=== PATIENT | female | born 1955 | race Caucasian/White ===

== ENCOUNTER 2019-09-30 09:18 | Inpatient (IN) ==
--- OUTSIDE RECORDS SUMMARY | 2019-09-30 09:21 | External Medical Summary | Continuity of Care Document ---
:1955 Author Name Massimo Roberts, Provider Address Unavailable Unavailable , Care Team Providers Name Role Phone Orestes [email or web address] Unavailable Unavailable Unavailable Unavailable Unavailable Problems Active medical history not documented Allergies and Adverse Reactions Allergy history not documented Medications Medications not documented Procedures Procedures not documented Immunizations Immunizations not documented Plan of Treatment Planned Observations Planned Goals not documented Results No Known Results Results not documented
--- OUTSIDE RECORDS SUMMARY | 2019-09-30 09:21 | External Medical Summary | Continuity of Care Document ---
:1955 Author Name Massimo Roberts, Provider Address Unavailable Unavailable , Care Team Providers Name Role Phone Orestes [email or web address] [place] [email or web address] Unavailable Unavailable Unavailable Unavailable Unavailable Problems Active medical history not documented Allergies and Adverse Reactions Allergy history not documented Medications Medications not documented Procedures Procedures not documented Immunizations Immunizations not documented Plan of Treatment Planned Observations Planned Goals not documented Results No Known Results Results not documented
[2019-09-30] MEDS ORDERED: ASPIRIN CHEW 324 MG PO STA (09:33)
[2019-09-30] MEDS: NITROGLYCERIN SL 0.4 MG/TAB TAB SL PRN ×2 (09:48→10:09)
[2019-09-30 09:50] LABS: Basophils # (auto) 0.02 K/uL (0-0.2); Basophils % (auto) 0.2 %; Eosinophils # (auto) 0.06 K/uL (0-0.5); Eosinophils % (auto) 0.7 %; Hematocrit (blood only) 45.6 % (37-47); Hemoglobin 15.3 g/dL (12.0-16.0); Immature Granulocytes # (auto) 0.05 K/uL (0.00-0.02); Immature Granulocytes % (auto) 0.6 %; Lymphocytes # (auto) 1.24 K/uL (1.2-3.4); Mean Corpuscular Hemoglobin 27.9 pg (25-34); Mean Corpuscular Hgb Conc 33.6 g/dL (32-36); Mean Corpuscular Volume 83.2 fL (80-100); Mean Platelet Volume 11.8 fL (7.4-10.4); Monocytes # (auto) 0.23 K/uL (0.11-0.59); Monocytes % (auto) 2.6 %; Neutrophils # (auto) 7.25 K/uL (1.4-6.5); Neutrophils % (auto) 81.9 %; Platelet Count 179 K/uL (130-400); RDW Coefficient of Variation 14.6 % (11.5-14.5); RDW Standard Deviation 44.5 fL (36.4-46.3); Red Blood Count 5.48 M/uL (4.2-5.4); White Blood Count 8.85 K/uL (4.8-10.8)
--- NOTE | 2019-09-30 09:53 | XRay Report ---
XR chest 1V portable CLINICAL HISTORY: 64 years-old Female presenting with Chest Pain. TECHNIQUE: Portable upright AP view of the chest was obtained. COMPARISON: None. FINDINGS: Cardiac silhouette top normal in size. Borderline pulmonary vascular prominence. No focal opacity. No large effusion or pneumothorax. Osseous structures normal. Upper abdomen normal. IMPRESSION: 1. Questionable volume overload. No other evidence of acute cardiopulmonary disease. ACT 112: Negative or not required by law. Electronically signed by: Cl Daugherty M.D. 09/30/2019 9:51 AM
[2019-09-30 10:04] LABS: Partial Thromboplastin Ratio 0.9; Partial Thromboplastin Time 25.3 Seconds (21.0-31.0); Prothrombin Time 10.2 Seconds (9.0-12.0)
[2019-09-30 10:07] LABS: Albumin Level 4.1 gm/dl (3.4-5.0); BUN Creatinine Ratio 11.8 (10-20); Calcium 9.7 mg/dl (8.5-10.1); Creatinine Clr Calc Pharmacy 45.3 ml/min; Est GFR (African American) 53.3; Potassium 3.9 mmol/L (3.5-5.1)
[2019-09-30 10:12] LABS: Bilirubin,Total 0.4 mg/dl (0.2-1); Globulin 4.3 gm/dl (2.5-4.0); Total Protein 8.4 gm/dl (6.4-8.2); Troponin I 0.018 ng/ml (0-0.045)
[2019-09-30] MEDS ORDERED: NITROGLYCERIN 2% OINTMENT 30GM TUBE EXT STA (10:48)
--- NOTE | 2019-09-30 12:39 | History & Physical Report ---
Date of Service September 30, 2019 Assessment & Plan (1) Chest pain: Rule out ACS, risk factors including active smoking, diabetes, HTN and hyperlipidemia. Chest pain-free after nitro. EKG changes present including inferolateral TWI. No prior EKGs available for comparison. Trend cardiac e nzymes, monitor on telemetry and repeat EKG if chest pain returns. Consult cardiology. Lipids in am. For now increase Lipitor 80mg daily for plaque stabilization. Nitro/morphine PRN. Cont home Toprol. (2) Diabetes: Slightly uncontrolled in ER. Recheck now and give additional insulin coverage as appropriate. (Repeat is 157, cont with basal bolus insulin with correction factor and carb coverage as ordered.) Hold metformin and cont basal/bolus coverage during the inpatient hospitalization. A1C in am . (3) Hypertension: slightly uncontrolled. Cont home lisinopril which she didn't take this morning. As BP around 156 systolic will give one lis 20mg (double her normal dose) now. (4) Hyperlipidemia: On Lipitor 40mg at home. Increase to 80mg during ACS rule out. (5) Smoker: Strongly recommended to her that she quit and she is on board. We discussed some different options including using all-filter cigarettes and nicotine replacement strategies. Contemplative phase. (6) DVT prophylaxis: Lovenox Full Dispo-to telemetry. Plan for DC to home in am pending cardiac workup overnight. DO Mir Ponce Hospitalist History of Present Illness Chief Complaint: Chest pain Primary Care Provider: Mikala Joseph 64-year-old diabetic smoker female presents with acute onset of chest pain at rest this morning that was associated with nausea. Her pain was described as an overall chest tightness prompting evaluation at the ER and was resolved completely after administration of 2 nitroglycerin tablets. Associated symptoms included left arm pain. She also reports having episodes of palpitations over t he last couple of days that were out of the blue, noticed mostly when lying down to go to sleep in the evening. Palpitations were not provoked by anything in particular. She denies history of chest pain, shortness of breath or other issues with her heart in the past. She has a good functional capacity where she can climb a flight of stairs without symptoms and reports no symptoms when doing exercises. She is an active smoker and is working to cut back failing trials to quit in the past. She does have a history of hyperlipidemia and diabetes as well as hypertension. She denies any family history of CAD in first-degree relatives. She is currently chest pain-free. She denies any blood per rectum, abdominal pain or other GI issues, fevers, chills, recent cold symptoms or other issues. Allergies Allergy/AdvReac Type Severity Reaction Status Date / Time No Known Allergies Allergy Unverified 09/30/19 10:55 Home Medications Home Medications Medication Instructions Recorded Confirmed Type atorvastatin 40 mg PO QAM 09/30/19 09/30/19 History levothyroxine 50 mcg PO QAM 09/30/19 09/30/19 History linagliptin [Tradjenta] 5 mg PO QAM 09/30/19 09/30/19 History lisinopril 10 mg PO QAM 09/30/19 09/30/19 History metformin 1,000 mg PO BID 09/30/19 09/30/19 History metoprolol succinate 12.5 mg PO QPM 09/30/19 09/30/19 History sertraline 50 mg PO QAM 09/30/19 09/30/19 History Past Med/Surg History Family History Other Family history non-contributory Social History Feels Safe at Home: Yes Smoking Status: Current every day smoker Review of Systems Review of Systems: All systems reviewed & are unremarkable except as noted in HPI & below Physical Exam Physical Exam: CONSTITUTIONAL: WNWD, vitals as above, generally well- appearing EYES: PERRL, normal conjunctivae, no scleral icterus ENT: external ear and nose normal, oropharynx clear, MMM NECK: trachea midline RESPIRATORY: clear to auscultation bilaterally, no crackles, rales or wheezes, normal respiratory effort CARDIOVASCULAR: regular rate and rhythm, S1 and 2 heard without murmurs, gallops or rubs, no JVD, no peripheral edema CHEST: inspection of chest was normal GASTROINTESTINAL: soft, nontender, nondistended MUSCULOSKELETAL: strength 5/5 throughout, head is normocephalic and atraumatic, normal palpation of chest wall without tenderness SKIN: warm and dry, no rashes NEUROLOGIC: No facial palsy, CN 2-12 grossly intact, no sensory deficit, normal cognition, normal speech PSYCHIATRIC: alert cooperative and oriented to person, place and time. Euthymic mood, makes good eye contact Results & Data Vital Signs (Past 12 Hours) Vital Signs Temp Pulse Pulse Resp BP BP Pulse Ox 09/30/19 11:01 86 18 158/95 H 97 09/30/19 10:09 83 18 159/91 H 97 09/30/19 09:31 97 09/30/19 09:24 36.5 C 85 16 176/99 H 97 Laboratory Results Short CBC 09/30/19 Range/Units 09:40 WBC 8.85 (4.8-10.8) K/uL Hgb 15.3 (12.0-16.0) g/dL Hct 45.6 (37-47) % Plt Count 179 (130-400) K/uL BMP 09/30/19 09:40 Sodium 136 Potassium 3.9 Chloride 105 Carbon Dioxide 24 BUN 15 Creatinine 1.23 H Glucose 257 H Calcium 9.7 Cardiac Enzymes 09/30/19 Range/Units 09:40 Troponin I 0.018 (0-0.045) ng/ml Liver Function 09/30/19 Range/Units 09:40 Total Bilirubin 0.4 (0.2-1) mg/dl AST 13 L (15-37) U/L ALT 20 (12-78) U/L Alkaline Phosphatase 91 (45-117) U/L Albumin 4.1 (3.4-5.0) gm/dl Diagnostic Findings XR chest 1V portable CLINICAL HISTORY: 64 years-old Female presenting with Chest Pain. TECHNIQUE: Portable upright AP view of the chest was obtained. COMPARISON: None. FINDINGS: Cardiac silhouette top normal in size. Borderline pulmonary vascular prominence. No focal opacity. No large effusion or pneumothorax. Osseous structures normal. Upper abdomen normal. IMPRESSION: 1. Questionable volume overload. No other evidence of acute cardiopulmonary disease. Medications Administered Nitro 0.4mg SL x 2 Nitro 0.5" paste to chest wall ASA 324mg Code Status & VTE Plan VTE Prophylaxis Plan VTE Prophylaxis will be ordered: Yes
[2019-09-30] MEDS ORDERED: ONDANSETRON INJ 2 MG/ML 2 ML VIAL IV PRN (13:19)
[2019-09-30] MEDS ORDERED: MoRPHine SULFATE 2 MG/ML CARP IV PRN (13:19)
[2019-09-30] MEDS ORDERED: ACETAMINOPHEN 325 MG TAB PO PRN (13:19)
[2019-09-30] MEDS ORDERED: GLUCAGON FOR INJ 1 MG VIAL SQ PRN (13:19)
[2019-09-30] MEDS ORDERED: GLUCOSE 10 TABS/TUBE PO PRN (13:19)
[2019-09-30] MEDS ORDERED: DEXTROSE 50% 50 ML SYRINGE IV PRN (13:19)
[2019-09-30] MEDS ORDERED: CARBOHYDRATES FOR HYPOGLYCEMIA PO PRN (13:19)
[2019-09-30] MEDS ORDERED: GLUCOSE 40% GEL 15 GM TUBE PO PRN (13:19)
[2019-09-30] MEDS ORDERED: POLYETHYLENE (MIRALAX) 17 GM PACK PO PRN (13:19)
[2019-09-30] MEDS ORDERED: NITROGLYCERIN SL 0.4 MG/TAB TAB SL PRN (13:31)
[2019-09-30] MEDS ORDERED: lisinopriL 20 MG TAB PO STA (13:47)
[2019-09-30] MEDS ORDERED: SODIUM CHLORIDE 0.9% 500 ML IV SCH (14:00)
[2019-09-30] MEDS ORDERED: ENOXAPARIN INJ 40 MG/0.4 ML SYR SQ SCH (14:00)
[2019-09-30] MEDS ORDERED: HEPARIN (PORCINE) 1000 UNIT/ML 10 ML (CATH LAB USE ONLY) ONE (14:37)
[2019-09-30] MEDS ORDERED: NiCARDipine HCL INJ 2.5 MG/ML 10 ML AMP ONE (14:37)
[2019-09-30] MEDS ORDERED: MIDAZOLAM HCL 1 MG/ML 2ML VIAL ONE (14:38)
[2019-09-30] MEDS ORDERED: fentaNYL citrate 100 MCG/2 ML VIAL ONE (14:38)
[2019-09-30] MEDS ORDERED: NITROGLYCERIN/D5W 100MCG/ML 20ML SYR ONE (14:39)
--- NOTE | 2019-09-30 14:39 | Cardiology Consultation ---
Date of Consultation September 30, 2019 Assessment & Plan (1) Non-ST elevation (NSTEMI) myocardial infarction: (2) Diabetes: (3) Hypertension: (4) Dyslipidemia, goal LDL below 70: (5) Smoker: Recommend IV heparin per weight-based protocol. Continue aspirin and statin therapy. Increase metoprolol to 25 mg twice daily, first dose now. Risk, benefits, and alternatives to cardiac catheterization discussed at length. Patient agreeable to procedure and percutaneous intervention if indicated. She is a drug-eluting stent candidate. Patient agreeable. Recommend IV hydration due to chronic kidney disease stage III. Further recommendations pending results of cardiac catheterization. History of Present Illness Reason for Consultation: chest pain Requesting Physician: Dr. Enamorado Attending Physician: Huyen Enamorado DO History of Present Illness 64-year-old female presented emergency department with chest discomfort. Patient awoke at approximately 4:30 AM with left arm pain and substernal chest tightness. Chest tightness rated as 5/10. Positive associated nausea. Discomfort persisted so she proceeded to the emergency department for further evaluation. Treated with sublingual nitroglycerin and aspirin on admission. Discomfort in her chest and arm subsequently resolved. Chest pain-free since admission to the telemetry unit. Carries history of diabetes, tobacco abuse, hypertension, and dyslipidemia. Bedside 2D transthoracic echocardiogram demonstrates preserved LV systolic function without significant valvular pathology. Hypertensive since admission. Allergies Allergy/AdvReac Type Severity Reaction Status Date / Time No Known Allergies Allergy Unverified 09/30/19 10:55 Home Medications Home Medications Medication Instructions Recorded Confirmed Type atorvastatin 40 mg PO QAM 09/30/19 09/30/19 History levothyroxine 50 mcg PO QAM 09/30/19 09/30/19 History linagliptin [Tradjenta] 5 mg PO QAM 09/30/19 09/30/19 History lisinopril 10 mg PO QAM 09/30/19 09/30/19 History metformin 1,000 mg PO BID 09/30/19 09/30/19 History metoprolol succinate 12.5 mg PO QPM 09/30/19 09/30/19 History sertraline 50 mg PO QAM 09/30/19 09/30/19 History Patient History Medical History Depression Diabetes Hyperlipidemia Hypertension Hypothyroidism Palpitations Tobacco use Surgical History H/O cystoscopy H/O lithotripsy S/P oophorectomy Family History Other Family history non-contributory Social History Preferred Language: Persian Communication Ability: Effective Jewel Stringer Required: No Beliefs That Will Affect Care: None Current Living Situation: Spouse Feels Safe at Home: Yes Safety Concerns: Feels Safe At This Time Smoking Status: Current every day smoker Tobacco Type: cigarettes ; Cigarettes Per Day: 7 ; Hx Alcohol Use: No Hx Substance Use: No Review of Systems Review of Systems: All systems reviewed & are unremarkable except as noted in HPI & below Physical Exam Constitutional: well developed and well nourished; no acute distress and not ill appearing Neck: trachea midline, no thyromegaly Respiratory: normal respiratory effort, lungs clear to auscultation Cardiovascular: Rate/Rhythm: regular rate and regular rhythm Heart Sounds: normal S1 and normal S2; no gallop, no murmur and no cardiac rub Palpation: normal PMI Vessels: femoral pulses present, dorsalis pedis pulses present and radial pulses present; no JVD and no carotid bruit Extremities: normal capillary refill; no edema Gastrointestinal (Abdomen): normal bowel sounds, soft, nontender, no hepatosplenomegaly Musculoskeletal: no cyanosis or clubbing, extremities motor strength 5/5 Skin: no rashes, warm and dry Neurologic: moves all extremities; no focal motor deficits Psychiatric: A+Ox3, euthymic affect Results & Data ([facility]) Vital Signs (Past 12 Hours) Vital Signs Temp Pulse Pulse Resp BP BP Pulse Ox 09/30/19 13:33 36.6 C 88 18 175/93 H 95 09/30/19 13:29 94 H 09/30/19 11:01 86 18 158/95 H 97 09/30/19 10:09 83 18 159/91 H 97 09/30/19 09:31 97 09/30/19 09:24 36.5 C 85 16 176/99 H 97 (1) Diabetes Diabetes mellitus type: type 2 Diabetes mellitus complication status: with circulatory complication Diabetes mellitus complication detail: with other circulatory complications 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
[2019-09-30] MEDS ORDERED: METOPROLOL TARTRATE 25 MG TAB PO STA (14:40)
[2019-09-30] MEDS ORDERED: HEPARIN SODIUM/DEXTROSE 25,000 UNITS/500 ML BAG IV SCH (14:45)
--- NOTE | 2019-09-30 15:01 | Pre Anesthesia Assessment ---
Date of Service September 30, 2019 Pre Sedation Assessment Vital Signs Temp Pulse Pulse Resp BP BP Pulse Ox 09/30/19 13:33 36.6 C 88 18 175/93 H 95 09/30/19 13:29 94 H 09/30/19 11:01 86 18 158/95 H 97 09/30/19 10:09 83 18 159/91 H 97 09/30/19 09:31 97 09/30/19 09:24 36.5 C 85 16 176/99 H 97 Cardiovascular RRR, no murmur, no edema Respiratory normal respiratory effort, lungs clear to auscultation Pre-Sedation Airway Assessment Smoking Status: Current every day smoker Hx Sleep Apnea: No Short, Thick Neck: No Thyromental Distance: > or= 3.5 Finger Breadths Oral Cavity: + WNL Mallampati Class: III ASA: ASA3 NPO Status Date of Last Intake of Fluids: 09/29/19 Time of Last Intake of Fluids: 21:00 Date of Last Intake of Solid Food: 09/29/19 Time of Last Intake of Solid Foods: 21:00 Procedure Planning Contraindications for Sedation: none Current Medications Reviewed: No Notes The planned sedation has been discussed with the patient. Informed Consent was obtained. I have identified the patient, determined the appropriateness of sedation and have assessed the patient immediately prior to the procedure. All medicine(s) and interventions are by my order.
--- NOTE | 2019-09-30 15:43 | Post Anesthesia Assessment ---
Date of Service September 30, 2019 Post Sedation Assessment Vital Signs Temp Pulse Pulse Resp BP Pulse Ox 10/01/19 08:00 65 10/01/19 07:39 36.5 C 60 19 144/73 H 96 10/01/19 04:18 37.1 C 55 L 18 115/67 99 10/01/19 00:17 37.3 C 72 20 148/84 H 97 09/30/19 21:14 154/79 H 09/30/19 19:56 36.5 C 82 18 185/94 H 96 09/30/19 18:40 75 170/95 H 91 09/30/19 18:10 36.6 C 88 20 188/85 H 96 09/30/19 17:40 85 20 182/109 H 96 09/30/19 17:25 36.6 C 85 20 188/113 H 98 09/30/19 17:10 36.8 C 88 20 165/83 H 09/30/19 13:33 36.6 C 88 18 175/93 H 95 09/30/19 13:29 94 H 09/30/19 11:01 86 18 158/95 H 97 Recovery Score Activity: Moves 4 extremities Respiration: Deep Breath/Cough Circulation: +/-20% PreAnes Value Consciousness: Fully Awake Oxygen Saturation: > 92% On Room Air Discharge Sedation Level of Care: Phase I Post Sedation Plan On clinical assessment, the patient appears to have tolerated the sedation witho ut complications. Patient is recovering as anticipated. Patient will continue to be monitored by nursing and may be discharged when sedation discharge criteria are met per below protocol. Upon Completions of procedure up to 15 minutes continue every 5 minute vital signs and the P.A.R. score; then discharge to a Phase I or Fast Track to Phase II per the following guidelines: * Discharge Patient to appropriate Phase II area if PAR is 8 or greater or return to pre- procedure baseline. The post - procedure orders will be as directed. * If PAR score is less than 8 or not return to pre-procedure baseline then patient will follow Phase I monitoring till PAR is reached for Phase II. The Phase I may be done in procedure room or may call to secure a Phase I area. * If naloxone or flumazenil are used for reversal, hold in Phase I for continued monitoring from when last reversal dose was given for a minimum of 60 minutes or longer pending the nurse and/or physician discretion of patient condition before discharge to Phase II. Please call the Sedation Physician to re-evaluate and complete post-note for discharge to Phase II area. Do NOT discharge from procedure sedation or Phase 1 until post- sedation evaluation note is complete by procedure /sedation MD Sedation Discharge Instructions to be given to the patient at discharge to home.
--- NOTE | 2019-09-30 16:02 | Cardiac Catheterization ---
Cardiac Cath Procedure Full Procedure Date September 30, 2019 Pre-Procedure Diagnosis Pre-Procedure Diagnosis: Non STEMI AUC Score AUC Score: 8 Post-Procedure Diagnosis Post-Procedure Diagnosis: Severe CAD and Elevated Intracardiac Pressures Procedure(s) Performed Procedure(s) Performed: Coronary Angiography and Left Heart Cath Chief Clerk Shelter Brian Prescott DO Chemical Cell Changer(s) Jf GRADY Estimated Blood Loss Estimated Blood Loss: 8cc Medication(s) Medication(s): Fentanyl, Heparin, Lidocaine 1%, Nicardipine, Nitroglycerin and Versed Summary of Findings Right dominant coronary anatomy. The left main is a large vessel with a mild, 20% ostial taper. It gives rise to the left anterior descending, left circumflex, and small ramus intermedius. The left anterior artery is a large vessel which wraps around the left ventricular apex and is diffusely diseased. The proximal segment is mildly calcified with a 40% stenosis prior to the origin of the first large septal bearingizer. The mid segment demonstrates mild diffuse disease with stenosis ranging from 10 to 20%. There is a discrete distal stenosis 70%. The left circumflex is a large nondominant vessel. The left circumflex gives rise to a small first obtuse marginal branch vessel which is diffusely diseased proximally with a stenosis up to 80%. Then gives rise to a second large obtuse marginal branch vessel that is free of significant obstructive disease. The right coronary artery is a large dominant vessel and is diffusely diseased. The proximal segment demonstrates a 30% stenosis, the mid segment is diffusely diseased with stenosis ranging up to 30%. There is an acute distal stenosis, 99% with associated thrombus. Posterior descending artery is large caliber with 40% ostial stenosis. The first posterior lateral branch vessel is moderate caliber with an 80% ostial stenosis. Posterior lateral branch #2 and 3 are moderate to large caliber vessels with mild diffuse luminal irregularities. Hemodynamics Rest Ao:: 152/61/105 Final Ao: 175/77/115 LV: 174/-2/14 Recommendations Recommendations: PCI without planned CABG Specimens Specimens: None Radiation Exposure (mGy) 1169 Contrast (mls) 80 Fluids (cc crystalloids) Fluids (cc crystalloids): 53 Drains Drains: N/A Anesthesia Moderate sedation. Start 1505. End 1533. Sedation monitor: Pat GRADY Procedural Complication(s) None Disposition Patient remained in Bi Tri Operator for PCI of the right coronary artery I attest to the content of the Intraoperative Record and any orders documented therein. Any exceptions are noted below. ACC Data: Bi Tri Operator Cardiac Status Clinical evaluation leading to the procedure CAD Presenation: Non STEMI Anginal Classification: CCS IV Heart Failure: No Cardiogenic Shock within 24 Hours: No Cardiac Arrest within 24 Hours: No Imaging Studies Past 6 Months: Yes Stress Studies Past 6 Months: No STEMI OR Non-STEMI Symptom Onset Date: 09/30/19 Symptom Onset Time: 04:31 Thrombolytics: No Coronary Anatomy Dominant: Right Left Main (% Stenosis): Ostial (20% taper) LAD (% Stenosis): Proximal (40%. mildly calcified), Mid (30% diffusely diseased) and Distal (70%) D1 (% Stenosis): Proximal (10%) D2 (% Stenosis): Ostial (40%, small vessel) D3 (% Stenosis): Normal OM1 (% Stenosis): Proximal (80%, small vessel) OM2 (% Stenosis): Proximal (30%, large vessel) and Mid (20%) L PL1 (% Stenosis): Ostial (80%) RCA (% Stenosis): Proximal (30%), Mid (30%) and Distal (99%) R PDA (% Stenosis): Ostial (40%) R PL1 (% Stenosis): Ostial (80%) R PL2 (% Stenosis): Normal AM (% Stenosis): Proximal (90%) Ramus (% Stenosis): Normal Diagnostic Physicians Name: Brian Prescott DO Closure Device Recommendations: PCI without planned CABG
--- NOTE | 2019-09-30 16:57 | Post Anesthesia Assessment ---
Date of Service September 30, 2019 Post Sedation Assessment Vital Signs Temp Pulse Pulse Resp BP BP Pulse Ox 09/30/19 13:33 97.9 F 88 18 175/93 H 95 09/30/19 13:29 94 H 09/30/19 11:01 86 18 158/95 H 97 09/30/19 10:09 83 18 159/91 H 97 09/30/19 09:31 97 09/30/19 09:24 97.7 F 85 16 176/99 H 97 Recovery Score Activity: Moves 4 extremities Respiration: Deep Breath/Cough Circulation: +/-20% PreAnes Value Consciousness: Fully Awake Oxygen Saturation: > 92% On Room Air Discharge Sedation Level of Care: Fast Track Phase II Post Sedation Plan On clinical assessment, the patient appears to have tolerated the sedation without complications. Patient is recovering as anticipated. Patient will continue to be monitored by nursing and may be discharged when sedation discharge criteria are met per below protocol. Upon Completions of procedure up to 15 minutes continue every 5 minute vital signs and the P.A.R. score; then discharge to a Phase I or Fast Track to Phase II per the following guidelines: * Discharge Patient to appropriate Phase II area if PAR is 8 or greater or return to pre- procedure baseline. The post - procedure orders will be as directed. * If PAR score is less than 8 or not return to pre-procedure baseline then patient will follow Phase I monitoring till PAR is reached for Phase II. The Phase I may be done in procedure room or may call to secure a Phase I area. * If naloxone or flumazenil are used for reversal, hold in Phase I for continued monitoring from when last reversal dose was given for a minimum of 60 minutes or longer pending the nurse and/or physician discretion of patient condition before discharge to Phase II. Please call the Sedation Physician to re-evaluate and complete post-note for discharge to Phase II area. Do NOT discharge from procedure sedation or Phase 1 until post- sedation evaluation note is complete by procedure /sedation MD Sedation Discharge Instructions to be given to the patient at discharge to home.
[2019-09-30] MEDS ORDERED: HEPARIN IV BOLUS 5,000 UNITS in SYRINGE 0 ML IV ONE (17:00)
[2019-09-30] MEDS ORDERED: SODIUM CHLORIDE 0.9% 1000ML 1,000 ML IV SCH (17:00)
--- NOTE | 2019-09-30 17:06 | Cardiac Catheterization ---
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 Cardiac Status Clinical evaluation leading to the procedure CAD Presenation: Non STEMI Anginal Classification: CCS IV Heart Failure: No Cardiogenic Shock within 24 Hours: No Cardiac Arrest within 24 Hours: No Imaging Studies Past 6 Months: Yes Stress Studies Past 6 Months: No Diagnostic Physicians Name: Orestes Cole MD Status: Elective Closure Device Percutaneous Entry Location: Radial Closure Device: Radial Band Recommendations: PCI without planned CABG PCI Indication: PCI for high risk Non-PIOTR Lesion Segment Name: Distal RCA Culprit Artery: Yes Stenosis Prior to Rx (%): 99 Chronic Total Occlusion: No IVUS: No FFR: No Pre-Procedure GWYN Flow: 2 Previously Treated Lesion: No Lesion Complexity: Non-High/Non-C Lesion Length (mm): 12 Thrombus Present: Yes Bifurcation Lesion: Yes Guidewire Across Lesion: Stenosis Post-Procedure (%): 0 Post-Procedure GWYN Flow: 3 Devices(s) Deployed: Yes Yes Intraprocedure Events Significant Disection: No Perforation: No Cardiac Cath Procedure Full Procedure Date September 30, 2019 Pre-Procedure Diagnosis Pre-Procedure Diagnosis: Non STEMI AUC Score AUC Score: 8 Post-Procedure Diagnosis Post-Procedure Diagnosis: Severe CAD and Successful PCI Procedure(s) Performed Procedure(s) Performed: Coronary Angiography and Drug Eluting Stent Digital Media Designer Orestes Cole MD Wirer(s) Jf GRADY Estimated Blood Loss Estimated Blood Loss: 8cc Medication(s) Medication(s): Fentanyl, Heparin, Nicardipine, Nitroglycerin and Versed Medication(s): Ticagrelor Summary of Findings Indication: High risk NSTEMI Access: 6 Fr slender right radial Catheters: JR4 guide Findings: For full details of patient's coronary angiography please cath report dictated by Dr. Prescott. Briefly, patient found to have multi-vessel disease including a 99% acute distal RCA stenosis just before takeoff of right PDA. Decision to proceed with PCI. -- PCI -- Antithrombotic therapy: Heparin, ticagrelor Procedure: RCA cannulated with JR4 guide Primary Care Provider 50 wire passed across lesion into distal PLB Whisper wire placed into right PDA Distal RCA lesion predilated with 2.5 compliant balloon Dilated lesion stented with 3.0 x 15 mm Manny drug-eluting stent extending across takeoff of PDA Right PDA rewired with ferryboat pilot 50 wire Stent post-dilated with 3.0 noncompliant balloon IC vasodilators administered for spasm Post procedure GWYN 3 flow, stent well expanded with minimal residual stenosis and no apparent cardiac complications. Residual 40 to 50% ostial PDA disease unchanged after stenting with distal GWYN-3 flow. Arterial Closure: TR band Summary: 1. Successful PCI of distal RCA with single drug-eluting stent (3.0 x 15 mm Manny). Recommendations: To PCU for continued monitoring Loaded with ticagrelor 180 mg in laborer [place] Continue dual-antiplatelet therapy for at least 1 year Continue statin, and ASCVD risk factor modification Consult cardiac Rehab Hemodynamics Rest Ao:: 177/84/121 Final Ao: 164/65/89 LV: -- Recommendations Recommendations: PCI without planned CABG Specimens Specimens: None Radiation Exposure (mGy) 3114 Contrast (mls) 120 Fluids (cc crystalloids) Fluids (cc crystalloids): 125 Drains Drains: N/A Anesthesia Moderate sedation Procedural Complication(s) None Disposition PCU I attest to the content of the Intraoperative Record and any orders documented therein. Any exceptions are noted below. [facility] Card Cath Procedure Codes Moderate Sedation Procedure 1: Sedation/Anesthesia: 54710 Mod Sedation by a different physician ;Init15 Min Child Age 5&Up Procedure 2: Sedation/Anesthesia: 40197 Mod Sedation by a different physician;Ea Additional 15 Minutes Stenting Procedure 1: Cardiovascular Stent Procedures: 05099 Perc transcatheter placement of intracoronary stent(s), with ang PG Care Time/CCT Total # of Minutes Spent Total Time Spent with Patient: Total time spent is greater than 50% in coordinat ion of care (as documented) at patient's floor/unit and/or counseling patient:
--- NOTE | 2019-09-30 17:14 | Emergency Department Note ---
Entered by Gonzalo Hurst acting as a scribe for ED Provider Note CHIEF COMPLAINT: Chest Pain HISTORY OF PRESENT ILLNESS: The patient is a 64 year old female who presents to the Emergency Room with complaints of constant chest pain starting 5.5 hours ago. The patient states she initially had 6/10. She states her left-sided chest pain radiated to her left arm. She states she had nausea, SOB, and diaphoresis this morning. She states she took a baby aspirin this morning. She states her pain is now 4/10. She states she is not nauseous right now. She denies going on any long trips. She denies having a stress test and having a prior cardiac history. She states she smokes. She notes she has had a lithotripsy before. Pt denies LOC, headache, fevers, chills, visual changes, neck pain, breathing difficulties, vomiting, abdominal pain, back pain, leg swelling, melena, hematochezia, urinary symptoms, numbness, weakness, lymphadenopathy, rash, or other complaints. REVIEW OF SYSTEMS: See HPI for pertinent positives and negatives. A total of ten systems were reviewed and were otherwise negative. PMHx/PSHx: HTN, hyperlipidemia, diabetes, lithrotripsy SOCIAL HISTORY: Patient lives at home. Smoker. PHYSICAL EXAM: GENERAL: Awake, alert, well-appearing, in no distress HENT: Normocephalic, atraumatic. Oropharynx unremarkable. EYES: PERRL. Normal conjunctiva. Sclera non-icteric. NECK: Inspection normal. Non-tender. Supple. No nuchal rigidity. FROM. No masses. RESPIRATORY: Clear to auscultation. No wheezes. No rales. Normal respiratory effort. CARDIAC: Normal rate. Normal rhythm. No murmurs. No rubs. Extremities warm and well perfused. Pulses equal. No JVD. GI: Soft, non-distended. No tenderness to palpation. No rebound or guarding. No masses. RECTAL: Deferred. MUSCULOSKELETAL: Atraumatic. Chest examination reveals no tenderness. The back is symmetrical on inspection without obvious abnormality. There is no CVA tenderness to palpation. No joint edema. LOWER EXTREMITIES: Calves are equal size bilaterally and non-tender. No edema. No discoloration. NEURO: Normal sensorium. No sensory or motor deficits noted. SKIN: No rash or jaundice noted. EMERGENCY DEPARTMENT COURSE: 09: Past medical records reviewed. The patient was evaluated in room C12B, and a complete history and physical examination were performed. 1104: I reevaluated the patient. Her pain is 2/10 right now after 1 nitro. 1048: She states she no longer has chest pain after the second nitro. I am repeating the EKG. I called Dr. Kain Levy Hospitalist, for admission. 1118: I spoke to Dr. Finnegan. She asked me to contact Mir. 1134: I discussed the patient's case with Amy ANDERSEN. Dr. Fei Hester Hospitalist will evaluate the patient for further management MEDICAL DECISION MAKING: Triage Nursing notes reviewed and agree them. Additional history obtained from the family. The patient's history was concerning for chest pain. Differential diagnosis: Etiologies such as cardiac ischemia, aortic dissection, pulmonary embolism, pneumonia, pneumothorax, musculoskeletal, infections, pericarditis, myocarditis, esophageal rupture, gastrointestinal, as well as others were entertained. Physical examination: As above. ER treatment provided: Oral aspirin Sublingual nitroglycerin On reassessment the patient felt better. Nitropaste Diagnostic interpretation by me: The electrocardiogram was negative for pathologic change. The labs revealed an unremarkable CBC and chemistry panel. Initial troponin negative. LFTs and lipase negative. Imaging studies: Chest x-ray was negative for acute process. The patient has an abnormal ECG and chest pain relieved with nitroglycerin. She has multiple cardiac risk factors. She needs to be admitted for further management. Consultation: A consultation was placed with the hospitalist. The case was discussed and diagnostics were reviewed. The patient was evaluated in the ER for further tesfaye atment. IMPRESSION: Left-sided chest pain, Abnormal EKG, Hypertension PLAN: Admitted The scribe's documentation has been prepared under my direction and personally reviewed by me in its entirety. I confirm that the note above accurately reflects all work, treatment, procedures, and medical decision making performed by me. Impression & Plan Left-sided chest pain, Hypertension, Abnormal EKG Past Med/Surg History Medical History Depression Diabetes Hyperlipidemia Hypertension Hypothyroidism Palpitations Tobacco use Surgical History H/O cystoscopy H/O lithotripsy S/P oophorectomy Family History Other Family history non-contributory Social History Preferred Language: Danish Communication Ability: Effective Abrasive Grader Required: No Beliefs That Will Affect Care: None Current Living Situation: Spouse Feels Safe at Home: Yes Safety Concerns: Feels Safe At This Time Smoking Status: Current every day smoker Tobacco Type: cigarettes ; Cigarettes Per Day: 7 ; Hx Alcohol Use: No Hx Substance Use: No Results & Data Vital Signs Vital Signs - 24 hr 09/30/19 09:24 09/30/19 09:31 09/30/19 10:09 Temperature 36.5 C Temperature Source Oral Pulse Rate 85 Pulse Rate [Apical] 83 Pulse Rhythm [Apical] Regular Respiratory Rate 16 18 Blood Pressure 176/99 H Blood Pressure [Left Arm] 159/91 H Blood Pressure Mean 124 Blood Pressure Mean [Left Arm] 113 Pulse Oximetry 97 97 97 Oxygen Delivery Method Room Air Room Air Room Air Sepsis Recent Fever Within 48 Hours No Sepsis New/Unexplained Change in Mental Status No Sepsis Action Taken by Nursing No Action Required 09/30/19 11:01 Temperature Temperature Source Pulse Rate Pulse Rate [Apical] 86 Pulse Rhythm [Apical] Respiratory Rate 18 Blood Pressure Blood Pressure [Left Arm] 158/95 H Blood Pressure Mean Blood Pressure Mean [Left Arm] 116 Pulse Oximetry 97 Oxygen Delivery Method Room Air Sepsis Recent Fever Within 48 Hours Sepsis New/Unexplained Change in Mental Status Sepsis Action Taken by [facility] Medications Current Medication List: was personally reviewed by me Laboratory Data Attestation: I reviewed the patient's lab results. Result diagrams: 09/30/19 09:40 09/30/19 09:40 Lab Results 09/30/19 09/30/19 09/30/19 Range/Units 09:40 09:40 09:40 WBC 8.85 (4.8-10.8) K/uL RBC 5.48 H (4.2-5.4) M/uL Hgb 15.3 (12.0-16.0) g/dL Hct 45.6 (37-47) % MCV 83.2 (80-100) fL MCH 27.9 (25-34) pg MCHC 33.6 (32-36) g/dL RDW Std Deviation 44.5 (36.4-46.3) fL RDW Coeff of Liudmila 14.6 H (11.5-14.5) % Plt Count 179 (130-400) K/uL MPV 11.8 H (7.4-10.4) fL Immature Gran % (Auto) 0.6 % Neut % (Auto) 81.9 % Lymph % (Auto) 14.0 % [place] % (Auto) 2.6 % Eos % (Auto) 0.7 % Baso % (Auto) 0.2 % Immature Gran # (Auto) 0.05 H (0.00-0.02) K/uL Neut # (Auto) 7.25 H (1.4-6.5) K/uL Lymph # (Auto) 1.24 (1.2-3.4) K/uL [place] # (Auto) 0.23 (0.11-0.59) K/uL Eos # (Auto) 0.06 (0-0.5) K/uL Baso # (Auto) 0.02 (0-0.2) K/uL PT 10.2 (9.0-12.0) Seconds INR 1.0 (0.9-1.1) APTT 25.3 (21.0-31.0) Seconds PTT Ratio 0.9 Sodium 136 (136-145) mmol/L Potassium 3.9 (3.5-5.1) mmol/L Chloride 105 (98-107) mmol/L Carbon Dioxide 24 (21-32) mmol/L Anion Gap 7.0 (3-11) BUN 15 (7-18) mg/dl Creatinine 1.23 H (0.6-1.2) mg/dl Est Cr Clr Drug Dosing 45.3 ml/min Est GFR ( Amer) 53.3 Est GFR (Non-Af Amer) 46.0 BUN/Creatinine Ratio 11.8 (10-20) Glucose 257 H (70-99) mg/dl Calcium 9.7 (8.5-10.1) mg/dl Total Bilirubin 0.4 (0.2-1) mg/dl AST 13 L (15-37) U/L ALT 20 (12-78) U/L Alkaline Phosphatase 91 (45-117) U/L Troponin I 0.018 (0-0.045) ng/ml Total Protein 8.4 H (6.4-8.2) gm/dl Albumin 4.1 (3.4-5.0) gm/dl Globulin 4.3 H (2.5-4.0) gm/dl Albumin/Globulin Ratio 1.0 (0.9-2) Lipase 247 (73-393) U/L Administered Medications Discontinued Medications Aspirin (Aspirin) 243 mg PO NOW STA Stop: 09/30/19 09:34 Last Admin: 09/30/19 09:48 Dose: 243 mg Documented by: [id number] Nitroglycerin (Nitrostat) 0.4 mg SL Q5M PRN PRN Reason: Chest Pain Stop: 10/30/19 09:32 Last Admin: 09/30/19 10:09 Dose: 0.4 mg Documented by: [id number] Admin: 09/30/19 09:48 Dose: 0.4 mg Documented by: [id number] Nitroglycerin (Nitro-Bid 2%) 0.5 inch EXT NOW STA Stop: 09/30/19 10:49 Last Admin: 09/30/19 11:02 Dose: 0.5 inch Documented by: [id number] Imaging Data Radiologist's Impression: Radiology results as stated below per my review and the radiologist's interpretation: XR chest 1V portable CLINICAL HISTORY: 64 years-old Female presenting with Chest Pain. TECHNIQUE: Portable upright AP view of the chest was obtained. COMPARISON: None. FINDINGS: Cardiac silhouette top normal in size. Borderline pulmonary vascular prominence. No focal opacity. No large effusion or pneumothorax. Osseous structures normal. Upper abdomen normal. IMPRESSION: 1. Questionable volume overload. No other evidence of acute cardiopulmonary disease. ACT 112: Negative or not required by law. Electronically signed by: Cl Daugherty M.D. 09/30/2019 9:51 AM ECG Data Attestation: I personally reviewed and interpreted this ECG as follows: Indication: + chest pain Rate (beats per minute): 83 ECG Intervals/blocks: + Normal QRS ECG Glady: + Normal ECG ST segments: + ST depression (Lateral) and + T-wave inversions (Lateral); no ST elevation ECG Findings: + Q waves (Septal) Additional Comments: 2nd EKG: Normal sinus rhythm. Infralateral TWI. No ST elevation. Normal QRS. Normal axis. Inferior changes are new compared to the first EKG. Blood Pressure Blood Pressure Findings: Elevated blood pressure Blood Pressure Disposition: further management by hospitalist Discharge Plan Visit Data *Final* Discharge Date/Time: 09/30/19 12:45 Chief Complaint: Chest Pain Stated Complaint: CHEST TIGHTNESS, NAUSEA, L ARM PAIN ED Provider: Giles Rendon Discharge Problem: Left-sided chest pain, Hypertension, Abnormal EKG Patient Disposition: Admitted As Inpatient Discharge Instructions Interventions: ED Discharge Assessment Last Done: 09/30/19 12:45 The scribe's documentation has been prepared under my direction and personally reviewed by me in its entirety. I confirm that the note above accurately reflects all work, treatment, procedures, and medical decision making performed by me.
[2019-09-30] MEDS: ATORVASTATIN 40 MG TAB PO SCH (17:27)
[2019-09-30] MEDS: INSULIN ASPART 100 UNITS/ML 3 ML PEN SC SCH ×2 (17:33→20:31)
[2019-09-30] MEDS: TICAGRELOR 90 MG TAB PO SCH (17:43)
[2019-09-30] MEDS ORDERED: HydrALAZINE HCL 20 MG/ML VIAL IV PRN (17:52)
[2019-09-30] MEDS ORDERED: HydrALAZINE HCL 20 MG/ML VIAL IV STA (19:05)
[2019-09-30] MEDS: METOPROLOL TARTRATE 25 MG TAB PO SCH (20:29)
[2019-09-30] MEDS ORDERED: METOPROLOL SUCC 25MG EXT REL TAB PO SCH (21:00)
[2019-09-30] MEDS ORDERED: INSULIN GLARGINE SOLOSTAR 100 UNITS/ML 3 ML PEN SC SCH (21:00)
--- NOTE | 2019-10-01 05:55 | Electrocardiogram Report ---
Test Reason : Blood Pressure : / mmHG Vent. Rate : 083 BPM Atrial Rate : 083 BPM P-R Int : 166 ms QRS Dur : 088 ms QT Int : 372 ms P-R-T Axes : 057 020 166 degrees QTc Int : 437 ms Normal sinus rhythm Septal infarct , age undetermined Abnormal ECG No previous ECGs available Confirmed by Tony Stevens ([id number]) on 10/01/2019 5:55:44 AM Referred By: Confirmed By:Tony Stevens
--- NOTE | 2019-10-01 06:00 | Electrocardiogram Report ---
Test Reason : Blood Pressure : / mmHG Vent. Rate : 083 BPM Atrial Rate : 083 BPM P-R Int : 166 ms QRS Dur : 084 ms QT Int : 390 ms P-R-T Axes : 039 001 237 degrees QTc Int : 458 ms Normal sinus rhythm Abnormal ECG When compared with ECG of 30-SEP-2019 09:29, Inverted T waves have replaced nonspecific T wave abnormality in Inferior leads Confirmed by Tony Stevens ([id number]) on 10/01/2019 6:00:13 AM Referred By: REFERRED SELF Confirmed By:Tony Stevens
[2019-10-01] MEDS ORDERED: LEVOTHYROXINE SODIUM 50 MCG TABLET PO SCH (06:30)
[2019-10-01 07:19] LABS: Hematocrit (blood only) 39.7 % (37-47); Hemoglobin 13.2 g/dL (12.0-16.0); Mean Corpuscular Hemoglobin 27.2 pg (25-34); Mean Corpuscular Hgb Conc 33.2 g/dL (32-36); Mean Corpuscular Volume 81.7 fL (80-100); Platelet Count 167 K/uL (130-400); RDW Coefficient of Variation 14.8 % (11.5-14.5); RDW Standard Deviation 44.1 fL (36.4-46.3); Red Blood Count 4.86 M/uL (4.2-5.4); White Blood Count 8.12 K/uL (4.8-10.8)
[2019-10-01] MEDS: INSULIN ASPART 100 UNITS/ML 3 ML PEN SC SCH ×2 (07:52→12:02)
[2019-10-01] MEDS: ATORVASTATIN 40 MG TAB PO SCH (07:53)
[2019-10-01] MEDS: TICAGRELOR 90 MG TAB PO SCH (07:53)
[2019-10-01 07:54] LABS: BUN Creatinine Ratio 15.7 (10-20); Calcium 9.7 mg/dl (8.5-10.1); Creatinine Clr Calc Pharmacy 55.6 ml/min; Est GFR (African American) 68.5; Est GFR (Non-African American) 59.1; Potassium 3.5 mmol/L (3.5-5.1)
[2019-10-01] MEDS: METOPROLOL TARTRATE 25 MG TAB PO SCH (07:54)
[2019-10-01 08:06] LABS: Estimated Average Glucose 194 mg/dl; Hemoglobin A1C 8.4 % (4.5-5.6)
[2019-10-01] MEDS ORDERED: POTASSIUM CHLORIDE 20 MEQ TABCR PO STA (08:30)
[2019-10-01] MEDS ORDERED: ASPIRIN 81 MG ECTAB PO SCH (09:00)
[2019-10-01] MEDS ORDERED: lisinopriL 10 MG TAB PO SCH (09:00)
[2019-10-01] MEDS ORDERED: SERTRALINE HCL 50 MG TABLET PO SCH (09:00)
--- NOTE | 2019-10-01 10:22 | Cardiology Progress Note ---
Date of Service October 01, 2019 Assessment & Plan (1) Non-ST elevation (NSTEMI) myocardial infarction: (2) S/P right coronary artery (RCA) stent placement: (3) Diabetes: (4) Hypertension: (5) Dyslipidemia, goal LDL below 70: (6) Smoker: Continue aspirin plus Brilinta for 12 months post myocardial infarction/drug-eluting stent implantation. Results of catheterization demonstrating residual 70% mid to distal LAD stenosis will be managed medically at this time. Metoprolol titrated to 25 mg twice daily. Atorvastatin increased to 80 mg daily. Appropriate use of sublingual nitroglycerin reviewed. Outpatient cardiology follow-up in 1 to 2 weeks. Post catheterization activity restrictions listed below: ACTIVITY RECOMMENDATIONS: It is common to feel weak and fatigue for a few days. * Do not drive or operate any motorized equipment for the next three days. * Limit stair usage (2 or 3 trips a day only) for the next three days. * Do not lift anything heavier than 10 pounds for the next three days. * Do not engage in vigorous exercise or any sports for the next five days. * You may shower the day after your procedure, but do not immerse the area for three days. Cleanse the site gently with soap and water. SPECIAL CARE INSTRUCTIONS: * You may replace the pressure dressing or band-aid the morning after the procedure. * After your procedure, it is normal to have a small bruise or small lump at the site. Examine your site daily for any change in the bruise or lump, redness, swelling, drainage or numbness. Notify your doctor if any change. BLEEDING: * If there is a small amount of bleeding at the site, lie down and apply firm pressure with a clean cloth for ten minutes. When the bleeding stops, lie quietly keeping the procedure limb straight for six hours. Notify your doctor as soon as possible. * If the bleeding does not stop after ten minutes or if there is a large amount of bleeding or spurting, call 911 immediately. Continue to lie down and hold firm pressure until help arrives. SKIN IRRITATION: * You may experience some redness and/or swelling in the area where radiation was administered. If any skin irritation occurs, please contact your family physician. FOLLOW UP VISIT: Keep any scheduled doctor appointments. Subjective Patient seen and examined at the bedside. Right anterior wrist hematoma reported by nursing overnight. Manual pressure held time 15 minutes. Radial band was reapplied for an additional 45 minutes. She notes wrist soreness today. Her radial pulses palpable. Denies chest pain or shortness of breath overnight. Tolerating current medications. No dysrhythmias on telemetry. A.m. labs stable Review of Systems Review of Systems: All systems reviewed & are unremarkable except as noted in HPI & below Physical Exam Constitutional: well developed and well nourished; no acute distress and not ill appearing ENMT: Mallampati Class: III Neck: trachea midline, no thyromegaly Respiratory: normal respiratory effort, lungs clear to auscultation Cardiovascular: RRR, no murmur, no edema Rate/Rhythm: regular rate and regular rhythm Heart Sounds: normal S1 and normal S2; no gallop, no murmur and no cardiac rub Palpation: normal PMI Vessels: femoral pulses present, dorsalis pedis pulses present and radial pulses present (Right anterior wrist ecchymosis.); no JVD and no carotid bruit Extremities: normal capillary refill; no edema Gastrointestinal (Abdomen): normal bowel sounds, soft, nontender, no hepatosplenomegaly Musculoskeletal: no cyanosis or clubbing, extremities motor strength 5/5 Skin: no rashes, warm and dry Neurologic: moves all extremities; no focal motor deficits Psychiatric: A+Ox3, euthymic affect Results & Data Vital Signs (Past 12 Hours) Vital Signs Temp Pulse Pulse Resp BP Pulse Ox 10/01/19 08:00 65 10/01/19 07:39 36.5 C 60 19 144/73 H 96 10/01/19 04:18 37.1 C 55 L 18 115/67 99 10/01/19 00:17 37.3 C 72 20 148/84 H 97 (1) Diabetes Diabetes mellitus type: type 2 Diabetes mellitus alf insulin use: without exterminator termite use Diabetes mellitus complication status: with circulatory complication Diabetes mellitus complication detail: with other circulatory complications Qualified Code(s): E11.59 - Type 2 diabetes mellitus with other circulatory complications (2) Hypertension Hypertension type: essential hypertension Qualified Code(s): I10 - Essential (primary) hypertension
--- NOTE | 2019-10-01 12:00 | Hospitalist Progress Note ---
Date of Service October 01, 2019 Assessment & Plan (1) Chest pain: Non-ST elevation CT supported by EKG changes and troponin elevation Risk factors including active smoking, diabetes, HTN and hyperlipidemia. Status post cardiac cath and placement of drug-eluting RCA stent Appreciate cardiology input and recommendation Remains free of pain as of this morning We will discharge home this afternoon Has had small hematoma involving the right radial access site Resolved within few minutes following appear No significant change noted this morning (2) Diabetes: Blood sugar is noted to be minimally high on admission Hemoglobin A1c is high at 8.4 Advised to follow diabetic diet and continue with her outpatient medications (3) Hypertension: Controlled now Cont home lisinopril which she didn't take this morning. (4) Hyperlipidemia: On Lipitor 40mg at home. Increase to 80mg during ACS rule out. (5) Smoker: Strongly recommended to her that she quit and she is on board. We discussed some different options including using all-filter cigarettes and nicotine replacement strategies. Contemplative phase. (6) DVT prophylaxis: Lovenox Full Dispo-to telemetry. Plan for DC to home in am pending cardiac workup overnight. Will be discharged home this afternoon Admission and Anticipated Discharge Date Admission Date: September 30, 2019 Subjective 10/01/2019 Patient was seen and examined in telemetry unit She is a status post cardiac cath and stent placement in RCA Denies any symptoms as of this morning She has been ambulating well without any difficulty Review of Systems Review of Systems: All systems reviewed and are unremarkable except as noted below Cardiovascular: no chest pain, no dyspnea and no palpitations Gastrointestinal: no abdominal pain Musculoskeletal: Right atrial radial access site seems to be unremarkable and resolution of the hematoma that happened following the procedure Physical Exam Physical Exam: Lying in bed comfortably Constitutional: well developed and well nourished; no acute distress and not ill appearing Eyes: PERRL, conjunctivae normal, anicteric sclerae ENMT: external ear and nose normal, oropharynx normal Neck: trachea midline, no thyromegaly Respiratory: normal respiratory effort; no respiratory distress Auscultation: lungs clear to auscultation bilaterally Cardiovascular: Rate/Rhythm: regular rate and regular rhythm Heart Sounds: no murmur Gastrointestinal (Abdomen): Inspection/Auscultation: abdomen normal to inspection and normal bowel sounds Percussion/Palpation: abdomen soft; abdomen nontender Musculoskeletal: No acute arthritis in any joints Neurologic: moves all extremities; no focal motor deficits Lymphatic: no cervical or axillary lymphadenopathy Results & Data ([facility]) Vital Signs (Past 12 Hours) Vital Signs Temp Pulse Pulse Resp BP Pulse Ox 10/01/19 11:34 37.0 C 58 L 18 116/67 94 10/01/19 08:00 65 10/01/19 07:39 36.5 C 60 19 144/73 H 96 10/01/19 04:18 37.1 C 55 L 18 115/67 99 10/01/19 00:17 37.3 C 72 20 148/84 H 97 Laboratory Results Short CBC 10/01/19 Range/Units 07:02 WBC 8.12 (4.8-10.8) K/uL Hgb 13.2 (12.0-16.0) g/dL Hct 39.7 (37-47) % Plt Count 167 (130-400) K/uL BMP 10/01/19 07:02 Sodium 139 Potassium 3.5 Chloride 108 H Carbon Dioxide 22 BUN 16 Creatinine 1.00 Glucose 165 H Calcium 9.7 Cardiac Enzymes 09/30/19 09/30/19 Range/Units 13:53 21:17 Troponin I 0.334 H* 3.600 H* (0-0.045) ng/ml Medications Administered Current Inpatient Medications Acetaminophen (Tylenol) 650 mg PO Q4H PRN PRN Reason: Pain or Fever Stop: 10/30/19 13:18 Aspirin (Ecotrin Ectab) [facility] Stop: 10/31/19 08:59 Last Admin: 10/01/19 07:53 Dose: 81 mg Documented by: Atorvastatin Calcium (Lipitor) 80 mg PO [facility] Stop: 10/30/19 13:14 Last Admin: 10/01/19 07:53 Dose: 80 mg Documented by: Dextrose (Dextrose 50%) 25 - 50 ml IV UD PRN; Protocol PRN Reason: Hypoglycemia Protocol Stop: 10/30/19 13:18 Enoxaparin Sodium (Lovenox) 40 mg SQ Q24H [facility] Stop: 10/30/19 13:59 Last Admin: 09/30/19 17:27 Dose: Not Given Documented by: Glucagon (Glucagen) 1 mg SQ UD PRN; Protocol PRN Reason: Hypoglycemia Protocol Stop: 10/30/19 13:18 Glucose (Dex4 Glucose) 4 - 8 tabs PO UD PRN; Protocol PRN Reason: Hypoglycemia Protocol Stop: 10/30/19 13:18 Glucose (Glucose 40%) 15 - 30 gm PO UD PRN; Protocol PRN Reason: Hypoglycemia Protocol Stop: 10/30/19 13:18 Hydralazine HCl (Hydralazine Hcl) 10 mg IV Q6H PRN PRN Reason: Hypertension Stop: 10/30/19 17:51 Insulin Aspart (Novolog Flexpen) 0 units SC ACHS [facility] Stop: 10/30/19 16:29 Last Admin: 10/01/19 07:52 Dose: 7 units Documented by: Insulin Glargine (Lantus Solostar Pen) 10 units SC HS [facility] Stop: 10/30/19 20:59 Last Admin: 09/30/19 20:31 Dose: 10 units Documented by: Levothyroxine Sodium (Synthroid) 50 mcg PO DAILYBB [facility] Stop: 10/31/19 06:29 Last Admin: 10/01/19 06:36 Dose: 50 mcg Documented by: Lisinopril (Zestril) 10 mg [facility] Stop: 10/31/19 08:59 Last Admin: 10/01/19 07:53 Dose: 10 mg Documented by: Metoprolol Tartrate (Lopressor) 25 mg PO BID [facility] Stop: 10/30/19 20:59 Last Admin: 10/01/19 07:54 Dose: 25 mg Documented by: Miscellaneous (Carbohydrates For Hypoglycemia) 15 - 30 gm PO UD PRN PRN Reason: Hypoglycemia Protocol Stop: 10/30/19 13:18 Morphine Sulfate (Morphine Sulfate) 2 mg IV Q30M PRN PRN Reason: Chest Pain Stop: 10/14/19 13:18 Nitroglycerin (Nitrostat) 0.4 mg SL PRN PRN PRN Reason: Chest Pain Stop: 10/30/19 13:30 Ondansetron HCl (Zofran) 4 mg IV Q6H PRN PRN Reason: Nausea Stop: 10/30/19 13:18 Polyethylene Glycol (Miralax Powder Packet) 17 gm PO DAILY PRN PRN Reason: Constipation Stop: 10/30/19 13:18 Sertraline HCl (Zoloft) 50 mg PO [facility] Stop: 10/31/19 08:59 Last Admin: 10/01/19 07:53 Dose: 50 mg Documented by: Ticagrelor (Brilinta) 90 mg PO BID [facility] Stop: 10/31/19 08:59 Last Admin: 10/01/19 07:53 Dose: 90 mg Documented by: (1) Diabetes Diabetes mellitus type: type 2 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
--- NOTE | 2019-10-01 21:27 | Electrocardiogram Report ---
Test Reason : Blood Pressure : / mmHG Vent. Rate : 065 BPM Atrial Rate : 065 BPM P-R Int : 162 ms QRS Dur : 082 ms QT Int : 454 ms P-R-T Axes : 057 -08 -63 degrees QTc Int : 472 ms Normal sinus rhythm Prolonged QT Abnormal ECG When compared with ECG of 30-SEP-2019 11:03, No significant change was found Confirmed by Tony Stevens ([id number]) on 10/01/2019 9:26:50 PM Referred By: REFERRED SELF Confirmed By:Tony Stevens
--- NOTE | 2019-10-02 12:19 | Discharge Summary ---
Date of Service October 02, 2019 Admission HPI Per Admitting Provider 64-year-old diabetic smoker female presents with acute onset of chest pain at rest this morning that was associated with nausea. Her pain was described as an overall chest tightness prompting evaluation at the ER and was resolved completely after administration of 2 nitroglycerin tablets. Associated symptoms included left arm pain. She also reports having episodes of palpitations over the last couple of days that were out of the blue, noticed mostly when lying down to go to sleep in the evening. Palpitations were not provoked by anything in particular. She denies history of chest pain, shortness of breath or other issues with her heart in the past. She has a good functional capacity where she can climb a flight of stairs without symptoms and reports no symptoms when doing exercises. She is an active smoker and is working to cut back failing trials to quit in the past. She does have a history of hyperlipidemia and diabetes as well as hypertension. She denies any family history of CAD in first-degree relatives. She is currently chest pain-free. She denies any blood per rectum, abdominal pain or other GI issues, fevers, chills, recent cold symptoms or other issues. Admission Exam Per Admitting Provider Physical Exam: CONSTITUTIONAL: WNWD, vitals as above, generally well- appearing EYES: PERRL, normal conjunctivae, no scleral icterus ENT: external ear and nose normal, oropharynx clear, MMM NECK: trachea midline RESPIRATORY: clear to auscultation bilaterally, no crackles, rales or wheezes, normal respiratory effort CARDIOVASCULAR: regular rate and rhythm, S1 and 2 heard without murmurs, gallops or rubs, no JVD, no peripheral edema CHEST: inspection of chest was normal GASTROINTESTINAL: soft, nontender, nondistended MUSCULOSKELETAL: strength 5/5 throughout, head is normocephalic and atraumatic, normal palpation of chest wall without tenderness SKIN: warm and dry, no rashes NEUROLOGIC: No facial palsy, CN 2-12 grossly intact, no sensory deficit, normal cognition, normal speech PSYCHIATRIC: alert cooperative and oriented to person, place and time. Euthymic mood, makes good eye contact Principal Diagnosis Non-ST elevation HI, status post cardiac cath and placement of JAZMYNE in RCA Discharge Exam Constitutional well developed and well nourished; no acute distress and not ill appearing Eyes PERRL, conjunctivae normal, anicteric sclerae ENMT external ear and nose normal, oropharynx normal Neck trachea midline, no thyromegaly Respiratory normal respiratory effort; no respiratory distress Auscultation: lungs clear to auscultation bilaterally Cardiovascular Rate/Rhythm: regular rate and regular rhythm Heart Sounds: no murmur Gastrointestinal (Abdomen) Inspection/Auscultation: abdomen normal to inspection and normal bowel sounds Percussion/Palpation: abdomen soft; abdomen nontender Neurologic moves all extremities; no focal motor deficits Lymphatic no cervical or axillary lymphadenopathy Discharge Data Allergies Allergy/AdvReac Type Severity Reaction Status Date / Time No Known Allergies Allergy Unverified 09/30/19 10:55 Consultations 09/30/19 11:54 ED Decision to Admit Stat 09/30/19 13:19 Consult Cardiology Routine 09/30/19 14:28 Consult Cardiac Catheterization Routine 09/30/19 16:56 Consult Cardiac Rehabilitation Routine Procedures Performed Operation Date: 09/30/19 14:30 Actual Procedures p Cath, Left with Cors and Vent - Brian Prescott DO s Drug Eluting Stent SGl Vessel - Arnold Cole MD s Cineradiography w/Routine Exam - Brian Prescott DO Ordered Studies 09/30/19 14:53 CL Cath Imgs for PACS use only Stat Hospital Course (1) Chest pain: Non-ST elevation HI supported by EKG changes and troponin elevation Risk factors including active smoking, diabetes, HTN and hyperlipidemia. Status post cardiac cath and placement of drug-eluting RCA stent Appreciate cardiology input and recommendation Remains free of pain as of this morning We will discharge home this afternoon Has had small hematoma involving the right radial access site Resolved within few minutes following appear No significant change noted this morning (2) Diabetes: Blood sugar is noted to be minimally high on admission Hemoglobin A1c is high at 8.4 Advised to follow diabetic diet and continue with her outpatient medications (3) Hypertension: Controlled now Cont home lisinopril which she didn't take this morning. (4) Hyperlipidemia: On Lipitor 40mg at home. Increase to 80mg during ACS rule out. (5) Smoker: Strongly recommended to her that she quit and she is on board. We discussed some different options including using all-filter cigarettes and nicotine replacement strategies. Contemplative phase. (6) DVT prophylaxis: Lovenox Full Dispo-to telemetry. Plan for DC to home in am pending cardiac workup overnight. Will be discharged home this afternoon Total Time Total Time Spent Total Time Spent (In Minutes): 35 minutes Total Time Includes: Examination of the Patient, Discharge Planning, Medication Reconciliation and Communication With Other Providers Discharge Plan Discharge Items Patient Disposition: Home - Self-Care Reason For Visit: CHEST PAIN Discharge Diagnosis: Non-ST elevation HI, status post cardiac cath and placement of JAZMYNE in RCA Condition on Discharge: Good Activity: As commented below Activity Comment: ACTIVITY RECOMMENDATIONS: It is common to feel weak and fatigue for a few Non-emergency contact: Primary Care Provider Call non-emergency contact if: you have any medication questions Follow-up/Referrals: Clay lOivares [Outside Practitioners] - ( OFFICE WILL CONTACT YOU WITH A DATE AND TIME FOR YOUR APPOINTMENT) Diet: Carb Consistent or DM2 and Heart Healthy Addtl Attending Provider Instructions: Please take your medications as directed Aspirin and Brilinta must be continued for 12 months Your metoprolol dose has been increased Your cholesterol medicine has been increased too Pending Studies at Discharge: No Stand-Alone Forms: [facility], Smoking Cessation Medications and DC Order Prescriptions: New aspirin [Ecotrin Low Strength] 81 mg Tablet,Delayed Release (Dr/Ec) 81 mg PO QAM 30 Days Qty: 30 RF: 0 nitroglycerin [Nitrostat] 0.4 mg Tablet, Sublingual 0.4 mg sublingual PRN PRN (Reason: chest pain) 30 Days Qty: 25 RF: 0 Brilinta 90 mg Tablet 90 mg PO BID 30 Days Qty: 60 RF: 0 Continued levothyroxine 50 mcg tablet 50 mcg PO QAM RF: 0 metformin 1,000 mg tablet 1,000 mg PO BID RF: 0 lisinopril 10 mg tablet 10 mg PO QAM RF: 0 sertraline 50 mg tablet 50 mg PO QAM RF: 0 Tradjenta 5 mg tablet 5 mg PO QAM RF: 0 Changed atorvastatin 40 mg tablet 80 mg PO QAM 30 Days Qty: 60 RF: 0 metoprolol succinate 25 mg tablet extended release 24 hr 25 mg PO QPM 30 Days Qty: 30 RF: 0 Discharge Orders: Discharge Order (Routine); Ordered 10/01/19 Ordered By: Jenny Chen/Other Patient Handouts: Diabetes Filling Carrier Complications, Diabetes Healthy Meals, Diabetes Exercise Benefits, Diabetes Living Life, Diabetes Manage A1C Test Admission Data Admit Date/Time: 09/30/19 23:34 Attending Provider: Jenny Soriano Admit Provider: Huyen Enamorado Primary Care Provider: Mkiala Joseph Other Providers: Brian Prescott Sabrina M. Other Interventions: Discharge Summary Assessment (RN) Last Done: 10/01/19 14:16 DC Date/Time DO NOT enter until pt leaves facility: 10/01/19 14:54
== END 2019-10-01 14:54 | disposition home or self-care (01) | DRG 247 ==
LOC: 2N 09:18 → ED 09:18 → 2N 12:45 → 2S 17:37 → SUATTDRO 23:34